=== PATIENT | male | born 1990 | race Hispanic/Latino ===

== ENCOUNTER 2019-08-29 11:15 | Emergency (ER) | payer SELFPAY ==
[2019-08-29 11:46] LABS: BASOPHILS % (AUTO) 0.7 % (0.0-5.0); EOSINOPHILS % (AUTO) 3.1 % (0.0-8.0); HEMATOCRIT 43.8 % (42-54); LYMPHOCYTES % (AUTO) 30.1 % (21.0-51.0); MEAN CORPUSCULAR HEMOGLOBIN 29.7 pg (27.0-33.0); MEAN CORPUSCULAR HGB CONC 33.8 g/dL (32.0-36.0); MONOCYTES % (AUTO) 6.2 % (3.0-13.0); NEUTROPHILS % (AUTO) 59.3 % (40.0-77.0); PLATELET COUNT (AUTO) 397 K/uL (130-400); RED BLOOD CELL COUNT(AUTO) 4.98 MIL/uL (4.50-6.20); RED CELL DISTRIBUTION WIDTH 11.5 % (11.0-15.5)
[2019-08-29 11:55] LABS: POTASSIUM 3.9 mmol/L (3.5-5.1)
[2019-08-29 11:59] LABS: RAPID GROUP A STREP NEGATIVE (NEGATIVE)
[2019-08-29 12:00] LABS: ALBUMIN 3.8 g/dL (3.5-5.0); BILIRUBIN,TOTAL 0.3 mg/dL (0.2-1.0); TOTAL PROTEIN, SERUM 7.8 g/dL (6.0-8.3)
== END 2019-08-29 12:38 | disposition home or self-care (01) ==
LOC: EDH 11:15
DX: B34.9 Viral infection, unspecified (principal); R53.1 Weakness
CPT/HCPCS: 36415; 71045; 80053; 85025; 87804; 87880